=== PATIENT | female | born 1995 | race Caucasian/White ===

== ENCOUNTER 2016-03-31 19:35 | Emergency (ER) | payer OTHER ==
[~2016-03-31] VITALS: Ht 154.9 cm; Wt 42.5 kg
[~2016-03-31 19:35] MED LIST: BEN25 PO; CEPH-443 PO; CITRACAL PO; FER325 PO; PRED20TA PO; PREN1TAB13 PO
[2016-03-31 20:17] VITALS: Ht 154.9 cm; Wt 42.5 kg
[2016-03-31 23:48] LABS: URINE BLOOD (Dip) POC Negative (NEGATIVE)
--- NOTE | 2016-03-31 23:49 | ERD ---
ER Documentation Chief Complaint Date/Time DATE: 03/31/16 TIME: 23:37 Chief Complaint left abdominal colic and poss HPI 20-year-old female presents to ED with chief complaint of intermittent left-sided abdominal cramping x one week. She states that her last normal menstrual cycle was 02/17/2016. She believes she may possibly however she is sensory at home urine test and then a clinic, states that last one looked faintly positive. She reports one episode of vomiting last week. Denies daily nausea or vomiting. Denies diarrhea, fever, dysuria, flank pain, vaginal pruritus and hematuria. She does report mild white vaginal discharge. She is concerned as to why she is not getting , states that her and her have been trying for several months now. States that her periods are normally regular, which is why she is interested in knowing why she was late this month. She has not taken any medication for her cramping, rates it a 6 out of 10. However she states she is not having the pain currently. She had her daughter one year ago, and is not currently breast-feeding. ROS All systems reviewed and are negative except as per history of present illness. Medications Home Meds Active Scripts Nitrofurantoin Monohyd Macrocr* (Macrobid*) 100 Mg Capsr, 100 MG PO BID for 7 Days, #14 CAP Prov:Odalys Longoria PA-C 04/01/16 Diphenhydramine Hcl* (Benadryl*) 25 Mg Cap, 25 MG PO Q6, #14 CAP Prov:VITO KOCH PA-C 07/29/15 Prednisone* (Prednisone*) 20 Mg Tab, 40 MG PO DAILY for 4 Days, TAB Prov:VITO KOCH PA-C 07/29/15 Cephalexin* (Keflex*) 500 Mg Capsule, 500 MG PO QID for 5 Days, CAP Prov:VITO KOCH PA-C 07/29/15 Reported Medications Ferrous Sulfate* (Ferrous Sulfate*) 325 Mg Tabec, 325 MG PO DAILY, TAB 10/04/14 Calcium Citrate* (Citracal*) 950 Mg Tab, 950 MG PO DAILY, TAB 10/04/14 Vit-Iron Fumarate-FA ( Vitamins Tablet) 1 Tab Tablet, 1 TAB PO DAILY, TAB 10/04/14 Allergies Allergies: Coded Allergies: No Known Allergy (Unverified , 07/29/15) PMhx/Soc History of Surgery: No Anesthesia Reaction: No Hx Neurological Disorder: No Hx Respiratory Disorders: No Hx Cardiac Disorders: No Hx Psychiatric Problems: No Hx Miscellaneous Medical Probl: No Hx Alcohol Use: No Hx Substance Use: No Hx Tobacco Use: No FmHx Family History: No diabetes Physical Exam Vitals Vital Signs Date Time Temp Pulse Resp B/P Pulse Ox O2 Delivery O2 Flow Rate FiO2 03/31/16 20:17 97.8 89 18 120/74 100 Physical Exam GENERAL: Non-toxic. No apparent signs of distress. LUNGS: Clear to auscultation. No accessory muscle use. No wheezing, no crackles. No signs or symptoms of respiratory distress. HEART: Regular rate and rhythm. No murmurs, clicks, rubs or gallops. ABDOMEN: Soft, nontender and nondistended. Bowel sounds positive. No rebound or guarding. No gross peritoneal signs. No Brink or McBurney point tenderness. No gross masses. BACK: No midline tenderness, no costovertebral tenderness. SKIN: There is no apparent rash, petechiae, erythema or swelling. Good skin turgor. Results 24 hrs Laboratory Tests Test 03/31/16 23:50 Bedside Urine Blood Negative Bedside Urine Glucose (UA) Negative Bedside Urine Ketones (LAB) Negative Bedside Urine Leukocyte Esterase (L 1+ Bedside Urine Nitrite (LAB) Positive Bedside Urine Protein (LAB) 1+ Bedside Urine pH (LAB) 7.0 Procedures/MDM Patient states that her main concern for being in the ER tenderness her missed period, she is interested in knowing whether or not she is . She has done several drugstore test, believes that the last was family positive. I explained to the patient that the POC we do here is the same as the [id number] and not any more accurate. Patient still wishes to have one done because she complains of left-sided intermittent cramping and one episode of vomiting 1 week ago. She denies daily nausea, vomiting, diarrhea, constipation, fever, dysuria, hematuria and vaginal pruritus. I ordered a POC urine and urine dip, awaiting results prior to further evaluation. POC urine : negative POC urine dip: nitrite positive, leukocyte esterase 1+ (consisting with UTI) The patient that her test was negative however she does have a UTI which should be treated even if she is asymptomatic because she is trying to get . I explained that she is not currently having pain a further workup may not give us much information about what is causing her cramping. Patient states that her pain is intermittent and is tolerable, she was more concerned about finding out she is and that being the cause of her cramping. She does not wish to have any further workup, states that she is not currently in pain. At this time low suspicion for ectopic , pyelonephritis, STI, nephrolithiasis, ovarian torsion, acute surgical abdomen, and diverticulitis. Patient is stable for discharge and outpatient management. Advised to follow-up with PCP or HORTICULTURE WORKER in 1-2 days to discuss fertility issues the patient is concerned about. Departure Diagnosis: Primary Impression: Missed period Additional Impressions: Abdominal cramps Urinary tract infection Urinary tract infection type: acute cystitis Hematuria presence: without hematuria Qualified Code: N30.00 - Acute cystitis without hematuria Condition: Good Patient Instructions: Understanding Urinary Tract Infections (UTIs) Odalys Longoria PA-C Mar 31, 2016 23:49
[2016-04-01] MEDS ORDERED: NITR-58 PO (00:12)
[2016-04-01 00:23] VITALS: BP 107/62; PULSE 63; RESP 18; TEMP 98.3
== END 2016-04-01 00:24 | disposition home or self-care (01) ==
LOC: FTE 19:35
DX: N92.6 Irregular menstruation, unspecified (principal); N30.00 Acute cystitis without hematuria
CPT/HCPCS: 81003; Z7502; 99283

== ENCOUNTER 2016-05-29 11:04 | Emergency (ER) | payer OTHER ==
[~2016-05-29] VITALS: Wt 42.5 kg
[~2016-05-29 11:04] MED LIST changes: +NITR-58 PO
--- NOTE | 2016-05-29 12:38 | ERD ---
ER Documentation Chief Complaint Date/Time DATE: 05/29/16 TIME: 12:35 Chief Complaint DELAYED MENSTRUAL PERIOD, NO VAG BLEEDING HPI This a 20-year-old female who presents the emergency department today complaining of a missed.. Patient states that she took a home test 2 days ago that was negative. States she wants to know she is . States her last menstrual period was April 06, 2016. States her menstrual cycles were always regular. States she was here one time before for a missed period. Denies any fevers or chills, abdominal pain, nausea or vomiting. ROS All systems reviewed and are negative except as per history of present illness. Medications Home Meds Active Scripts Nitrofurantoin Monohyd Macrocr* (Macrobid*) 100 Mg Capsr, 100 MG PO BID for 7 Days, #14 CAP Prov:Odalys Longoria PA-C 04/01/16 Diphenhydramine Hcl* (Benadryl*) 25 Mg Cap, 25 MG PO Q6, #14 CAP Prov:VITO KOCH PA-C 07/29/15 Prednisone* (Prednisone*) 20 Mg Tab, 40 MG PO DAILY for 4 Days, TAB Prov:VITO KOCH PA-C 07/29/15 Cephalexin* (Keflex*) 500 Mg Capsule, 500 MG PO QID for 5 Days, CAP Prov:VITO KOCH PA-C 07/29/15 Reported Medications Ferrous Sulfate* (Ferrous Sulfate*) 325 Mg Tabec, 325 MG PO DAILY, TAB 10/04/14 Calcium Citrate* (Citracal*) 950 Mg Tab, 950 MG PO DAILY, TAB 10/04/14 Vit-Iron Fumarate-FA ( Vitamins Tablet) 1 Tab Tablet, 1 TAB PO DAILY, TAB 10/04/14 Allergies Allergies: Coded Allergies: No Known Allergy (Unverified , 05/29/16) PMhx/Soc Medical and Surgical Hx: pt denies Medical Hx, pt denies Surgical Hx History of Surgery: No Anesthesia Reaction: No Hx Neurological Disorder: No Hx Respiratory Disorders: No Hx Cardiac Disorders: No Hx Psychiatric Problems: No Hx Miscellaneous Medical Probl: No Hx Alcohol Use: No Hx Substance Use: No Hx Tobacco Use: No Smoking Status: Never smoker Physical Exam Vitals Vital Signs Date Time Temp Pulse Resp B/P Pulse Ox O2 Delivery O2 Flow Rate FiO2 05/29/16 11:08 98.4 91 18 114/69 98 Physical Exam Const: No acute distress Head: Atraumatic Eyes: Normal Conjunctiva ENT: Normal External Ears, Nose and Mouth. Neck: Full range of motion..~ No meningismus. Resp: Clear to auscultation bilaterally Cardio: Regular rate and rhythm, no murmurs Abd: Soft, non tender, non distended. Normal bowel sounds Skin: No petechiae or rashes Neur: Awake and alert Psych: Normal Mood and Affect Procedures/MDM This is a 20-year-old female who presents the emergency department today complaining of missing her. Indicated that her last menstrual period was on April 06, 2016. Patient had stated that her menstrual cycles were always regular. I did obtain a urine test here in the emergency department that was negative. Urine test is negative Upon further review of the patient's records patient was seen here on March 31 for a missed. And had gone 3 weeks without having her period and was here for test at that time. Patient upon further questioning indicated that her period did, approximately 1 week after that and thus her last menstrual period was April 06, 2016. States she has not had it for the past 2 months. States she is trying to get . Patient symptoms at this time was consistent with amenorrhea. Patient is afebrile and otherwise well-appearing. She has no fevers or chills, nausea vomiting or abdominal pain on physical exam. Do not feel the patient requires further workup or imaging at this time. I have explained to the patient that there are several causes for amenorrhea and it may be a primary or secondary cause for. I have explained to her that she does need to follow-up with her OB/ FRUIT PICKER MACHINE OPERATOR especially given that she is trying to get . At this time the patient is stable for discharge and outpatient management. Patient should follow up with their PCP in the next 1-2 days. They may return to the emergency department sooner for any persistent or worsening of symptoms. Patient understood and agreed with the plan. Departure Diagnosis: Primary Impression: Amenorrhea Condition: Fair Patient Instructions: Amenorrhea Referrals: your TELEVISION PRODUCER Additional Instructions: Call your primary care doctor TOMORROW for an appointment during the next 1-2 days.See the doctor sooner or return here if your condition worsens before your appointment time. Make an appointment with your TELEVISION PRODUCER BRAYDEN CASEY PA-C May 29, 2016 12:38
== END 2016-05-29 13:19 | disposition home or self-care (01) ==
LOC: FTE 11:04
DX: N91.2 Amenorrhea, unspecified (principal)
CPT/HCPCS: 99282